=== PATIENT | male | born 1975 | race Caucasian/White ===

== ENCOUNTER 2017-02-19 09:30 | Emergency (ER) | payer OTHER, MEDICAID ==
[~2017-02-19] VITALS: Ht 177.8 cm; Wt 68.9 kg
[2017-02-19 09:32] VITALS: BP 121/73; PULSE 73; RESP 16; TEMP 99.1; O2SAT 100
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
[2017-02-19] MEDS ORDERED: TETANUS/DIPHTHERIA TOXOID ADULT 0.5 ML VIAL IM ONE (10:00)
== END 2017-02-19 10:09 | disposition home or self-care (01) ==
LOC: PHEFT 09:30
DX: R20.2 Paresthesia of skin (principal); S51.851A Open bite of right forearm, initial encounter; F17.200 Nicotine dependence, unspecified, uncomplicated; W50.3XXA Accidental bite by another person, initial encounter; Z23 Encounter for immunization
CPT/HCPCS: 90471; 90714

== ENCOUNTER 2018-07-12 09:38 | Inpatient (IN) ==
[2018-07-12 10:19] LABS: Baso # (Auto) 0.1 th/mm3 (0.0-0.2); Baso % (Auto) 0.4 % (0.0-2.0); Eos # (Auto) 0.3 th/mm3 (0.0-0.4); Hematocrit 39.6 % (39.0-51.0); Hemoglobin 13.1 gm/dL (13.0-17.0); Lymph # (Auto) 4.8 th/mm3 (1.0-4.8); Lymph % (Auto) 14.5 % (9.0-44.0); Mean Corpuscular HGB Conc 33.1 % (32.0-36.0); Mean Corpuscular Hemoglobin 28.1 pg (27.0-34.0); Mean Corpuscular Volume 84.8 fL (80.0-100.0); Mono # (Auto) 2.4 th/mm3 (0.0-0.9); Mono % (Auto) 7.3 % (0.0-8.0); Neut # (Auto) 25.2 th/mm3 (1.8-7.7); Neut % (Auto) 76.8 % (16.0-70.0); Platelet Count 491 th/mm3 (150-450); Red Blood Count 4.67 mil/mm3 (4.50-5.90); Red Cell Distribution Width 12.8 % (11.6-17.2); White Blood Count 32.8 th/mm3 (4.0-11.0)
[2018-07-12 10:46] LABS: Eosinophils 1 % (0-4); Lymphocytes 11 % (9-44); Monocytes 5 % (0-8)
[2018-07-12 10:47] LABS: Platelet Morphology Normal (Normal)
[2018-07-12 10:48] LABS: RBC Morphology Normal (Normal)
[2018-07-12 11:01] LABS: Chloride 100 meq/L (98-107); Sodium 139 meq/L (136-145)
[2018-07-12 11:04] LABS: Albumin 3.4 g/dL (3.4-5.0); Anion Gap 12 meq/L (5-15); Calcium 8.5 mg/dL (8.5-10.1); Carbon Dioxide 27.5 meq/L (21.0-32.0); Glucose,Random 178 mg/dL (74-106)
[2018-07-12 11:05] LABS: Blood Urea Nitrogen 8 mg/dL (7-18)
[2018-07-12 11:08] LABS: Alanine Aminotransferase 17 U/L (12-78); Aspartate Aminotransferase 13 U/L (15-37); Glomerular Filtration Rate Greater Than 89 mL/min (>89)
[2018-07-12 11:09] LABS: Total Protein 8.9 g/dL (6.4-8.2)
[2018-07-12 11:10] LABS: Alkaline Phosphatase 118 U/L (45-117)
--- NOTE | 2018-07-12 11:11 | ED ---
HPI General Chief complaint: Allergic Reaction Stated complaint: Throat closing Time Seen by Provider: 07/12/18 09:48 History of Present Illness HPI narrative: This is a 42-year-old male with no significant past medical history, presents here today with difficulty swallowing and sore throat. Over the last 3 or so days, patient's had progressive discomfort in his throat. He has difficulty swallowing and it is painful to swallow. Patient states he was stung by a wasp on the back of his neck 3 days ago and was not sure if this is related or not. He was initially seen at [facility] here in [place] and they evaluated him and were concerned about an allergic reaction. They gave him 1 mg of IM epinephrine as well as 12 mg of Decadron. They also gave him IV fluids and sent him here by private vehicle for further evaluation. Patient gives history that he had a fever a couple days ago. He is afebrile here. Related Data Home Medications Medication Instructions Recorded Confirmed No Known Home Medications 07/12/18 07/12/18 Allergies Allergy/AdvReac Type Severity Reaction Status Date / Time No Known Allergies Allergy Unverified 07/12/18 09:49 Review of Systems ROS: all other systems reviewed are negative Constitutional Denies chills and Reports fever(s) (A couple days ago) Eyes Reports system reviewed and no additional complaints, except as docu ENT Denies dental pain, Denies facial pain, Denies neck pain, Reports sore throat and Reports throat swelling Cardiovascular Reports system reviewed and no additional complaints, except as docu Respiratory Reports system reviewed and no additional complaints, except [facility] Gastrointestinal Denies abdominal pain, Denies nausea and Denies vomiting Genitourinary Reports system reviewed and no additional complaints, except as [facility] Musculoskeletal Reports system reviewed and no additional complaints, except as [facility] Neurologic Reports system reviewed and no additional complaints, except as docu PMFSH Social History Social History Substance History: No History of Abuse Second Hand Smoke Exposure: Yes Smoking Status: Current some day smoker Tobacco Type: Cigarettes How Often Do You Have a Drink Containing Alcohol: Monthly or less Recent Travel in [facility] within the Last 8 Weeks: No Recent Out of Country Travel within the Last 8 Weeks: No Immunization History Tetanus Immunization: Unsure Hx Influenza Vaccine This Season: No Exam Narrative Exam Narrative: GENERAL: Well-developed well-nourished gentleman in no acute respiratory distress. SKIN: Focused skin assessment warm/dry. HEAD: Atraumatic. Normocephalic. EYES: No scleral icterus. No injection or drainage. ENT: No nasal bleeding or discharge. Patient is able to open his mouth with no trismus. The patient does have a central uvula. No asymmetry in the palates. Very hoarse voice. NECK: Trachea midline. Bilateral submandibular lymphadenopathy. No woody edema noted. CARDIOVASCULAR: Regular rate and rhythm. No murmur appreciated. RESPIRATORY: No accessory muscle use. Clear to auscultation. Breath sounds equal bilaterally. GASTROINTESTINAL: Abdomen soft, non-tender, nondistended. Hepatic and splenic margins not palpable. MUSCULOSKELETAL: No obvious deformities. No clubbing. No cyanosis. No edema. NEUROLOGICAL: Awake and alert. No obvious cranial nerve deficits. Motor grossly within normal limits. Normal speech. Course Initial Documented Vital Signs Temperature 98.8 F 07/12/18 09:47 Pulse Rate 104 H 07/12/18 09:47 Respiratory Rate 20 07/12/18 09:47 Blood Pressure 153/79 H 07/12/18 09:47 Pulse Oximetry 97 07/12/18 09:47 Last Documented Vital Signs Temperature 98.3 F 07/13/18 08:00 Pulse Rate 78 07/13/18 09:00 Respiratory Rate 19 07/13/18 08:00 Blood Pressure 116/55 L 07/13/18 08:00 Pulse Oximetry 95 07/13/18 08:00 Critical Care Time Critical Care Time: Yes Total Critical Care Time: 45 Attestation: Aggregate critical care time was 45 minutes. Time to perform other separately billable procedures was not included in the critical care time. My time did not include minutes spent treating any other patients simultaneously or on activities that did not directly contribute to the patient's treatment. The services I provided to this patient were to treat and/or prevent clinically significant deterioration that could result in: I provided critical care services requiring my management, as noted below: Chart data review, documentation time, medication orders and management, vital sign assessments/reviewing monitor data, ordering and reviewing lab tests, ordering and interpreting/reviewing x-rays and diagnostic studies, care of the patient and discussion of the patient with the admitting physicians. Medical Decision Making MDM Narrative Medical decision making narrative: 42-year-old male presents today with complaints of sore throat difficulty swallowing. Patient was seen at a urgent care and concern was for an allergic reaction. Patient was given 1 mg of epinephrine IM and 12 mg of Decadron. They sent him here for further evaluation. Patient has a white count of 32,000. His CT scan shows a 2.6 cm left peritonsillar abscess. There is airway encroachment however not airway compromise. The patient was discussed with Dr. Wynne, [facility] material analyst , agreed to admit the patient to his service. We transferred the patient to the main hospital for close ICU monitoring. The patient was administered 3 g of Unasyn prior to departure and had IV fluids initiated. Medical Screen Exam Complete: Yes Emergency Medical Condition: Yes Lab Data Result diagrams: 07/13/18 04:44 07/13/18 04:44 Lab Results 07/12/18 07/12/18 07/12/18 Range/Units 09:55 09:55 15:40 CBC w Diff Slide review pending WBC 32.8 H (4.0-11.0) th/mm3 RBC 4.67 (4.50-5.90) mil/mm3 Hgb 13.1 (13.0-17.0) gm/dL Hct 39.6 (39.0-51.0) % MCV 84.8 (80.0-100.0) fL MCH 28.1 (27.0-34.0) pg MCHC 33.1 (32.0-36.0) % RDW 12.8 (11.6-17.2) % Plt Count 491 H (150-450) th/mm3 MPV 8.0 (7.0-11.0) fL Neut % (Auto) 76.8 H (16.0-70.0) % Lymph % (Auto) 14.5 (9.0-44.0) % Noble % (Auto) 7.3 (0.0-8.0) % Eos % (Auto) 1.0 (0.0-4.0) % Baso % (Auto) 0.4 (0.0-2.0) % Neut # (Auto) 25.2 H (1.8-7.7) th/mm3 Lymph # (Auto) 4.8 (1.0-4.8) th/mm3 Noble # (Auto) 2.4 H (0.0-0.9) th/mm3 Eos # (Auto) 0.3 (0.0-0.4) th/mm3 Baso # (Auto) 0.1 (0.0-0.2) th/mm3 WBC Differential Manual diff final Seg Neuts % (Manual) 79 H (16-70) % Band Neuts % (Manual) 4 (0-6) % Lymphocytes % (Manual) 11 (9-44) % Monocytes % (Manual) 5 (0-8) % Eosinophils % (Manual) 1 (0-4) % Abs Neuts (Manual) 27.2 H (1.8-7.7) th/mm3 Differential Comment . Platelet Estimate High H (Normal) Platelet Morphology Normal (Normal) RBC Morphology Normal (Normal) Sodium 139 (136-145) meq/L Potassium 4.0 (3.5-5.1) meq/L Chloride 100 (98-107) meq/L Carbon Dioxide 27.5 (21.0-32.0) meq/L Anion Gap 12 (5-15) meq/L BUN 8 (7-18) mg/dL Creatinine 0.85 (0.60-1.30) mg/dL Estimated GFR Greater than 89 (>89) mL/min POC Glucose (68-110) mg/dl Random Glucose 178 H (74-106) mg/dL Hemoglobin A1c (4.3-6.0) % Lactic Acid 1.0 (0.4-2.0) mmol/L Calcium 8.5 (8.5-10.1) mg/dL Magnesium (1.5-2.5) mg/dL Total Bilirubin 0.5 (0.2-1.0) mg/dL AST 13 L (15-37) U/L ALT 17 (12-78) U/L Alkaline Phosphatase 118 H (45-117) U/L Total Protein 8.9 H (6.4-8.2) g/dL Albumin 3.4 (3.4-5.0) g/dL Nasal Screen MRSA (PCR) (Negative) 07/12/18 07/12/18 07/12/18 Range/Units 15:40 15:40 23:52 CBC w Diff WBC (4.0-11.0) th/mm3 RBC (4.50-5.90) mil/mm3 Hgb (13.0-17.0) gm/dL Hct (39.0-51.0) % MCV (80.0-100.0) fL MCH (27.0-34.0) pg MCHC (32.0-36.0) % RDW (11.6-17.2) % Plt Count (150-450) th/mm3 MPV (7.0-11.0) fL Neut % (Auto) (16.0-70.0) % Lymph % (Auto) (9.0-44.0) % Noble % (Auto) (0.0-8.0) % Eos % (Auto) (0.0-4.0) % Baso % (Auto) (0.0-2.0) % Neut # (Auto) (1.8-7.7) th/mm3 Lymph # (Auto) (1.0-4.8) th/mm3 Noble # (Auto) (0.0-0.9) th/mm3 Eos # (Auto) (0.0-0.4) th/mm3 Baso # (Auto) (0.0-0.2) th/mm3 WBC Differential Seg Neuts % (Manual) (16-70) % Band Neuts % (Manual) (0-6) % Lymphocytes % (Manual) (9-44) % Monocytes % (Manual) (0-8) % Eosinophils % (Manual) (0-4) % Abs Neuts (Manual) (1.8-7.7) th/mm3 Differential Comment Platelet Estimate (Normal) Platelet Morphology (Normal) RBC Morphology (Normal) Sodium (136-145) meq/L Potassium (3.5-5.1) meq/L Chloride (98-107) meq/L Carbon Dioxide (21.0-32.0) meq/L Anion Gap (5-15) meq/L BUN (7-18) mg/dL Creatinine (0.60-1.30) mg/dL Estimated GFR (>89) mL/min POC Glucose 127 H (68-110) mg/dl Random Glucose (74-106) mg/dL Hemoglobin A1c 5.1 (4.3-6.0) % Lactic Acid (0.4-2.0) mmol/L Calcium (8.5-10.1) mg/dL Magnesium (1.5-2.5) mg/dL Total Bilirubin (0.2-1.0) mg/dL AST (15-37) U/L ALT (12-78) U/L Alkaline Phosphatase (45-117) U/L Total Protein (6.4-8.2) g/dL Albumin (3.4-5.0) g/dL Nasal Screen MRSA (PCR) Not detected (Negative) 07/13/18 07/13/18 07/13/18 Range/Units 04:44 04:44 05:22 CBC w Diff WBC 17.1 H (4.0-11.0) th/mm3 RBC 4.50 (4.50-5.90) mil/mm3 Hgb 12.5 L (13.0-17.0) gm/dL Hct 38.0 L (39.0-51.0) % MCV 84.5 (80.0-100.0) fL MCH 27.9 (27.0-34.0) pg MCHC 33.0 (32.0-36.0) % RDW 13.3 (11.6-17.2) % Plt Count 428 (150-450) th/mm3 MPV 7.9 (7.0-11.0) fL Neut % (Auto) 91.2 H (16.0-70.0) % Lymph % (Auto) 6.4 L (9.0-44.0) % Noble % (Auto) 2.4 (0.0-8.0) % Eos % (Auto) 0.0 (0.0-4.0) % Baso % (Auto) 0.0 (0.0-2.0) % Neut # (Auto) 15.6 H (1.8-7.7) th/mm3 Lymph # (Auto) 1.1 (1.0-4.8) th/mm3 Noble # (Auto) 0.4 (0.0-0.9) th/mm3 Eos # (Auto) 0.0 (0.0-0.4) th/mm3 Baso # (Auto) 0.0 (0.0-0.2) th/mm3 WBC Differential . Seg Neuts % (Manual) (16-70) % Band Neuts % (Manual) (0-6) % Lymphocytes % (Manual) (9-44) % Monocytes % (Manual) (0-8) % Eosinophils % (Manual) (0-4) % Abs Neuts (Manual) (1.8-7.7) th/mm3 Differential Comment Auto diff final Platelet Estimate (Normal) Platelet Morphology (Normal) RBC Morphology (Normal) Sodium 137 (136-145) meq/L Potassium 3.9 (3.5-5.1) meq/L Chloride 102 (98-107) meq/L Carbon Dioxide 26.9 (21.0-32.0) meq/L Anion Gap 8 (5-15) meq/L BUN 11 (7-18) mg/dL Creatinine 0.69 (0.60-1.30) mg/dL Estimated GFR Greater than 89 (>89) mL/min POC Glucose 157 H (68-110) mg/dl Random Glucose 129 H (74-106) mg/dL Hemoglobin A1c (4.3-6.0) % Lactic Acid (0.4-2.0) mmol/L Calcium 8.7 (8.5-10.1) mg/dL Magnesium 2.5 (1.5-2.5) mg/dL Total Bilirubin 0.3 (0.2-1.0) mg/dL AST 12 L (15-37) U/L ALT 15 (12-78) U/L Alkaline Phosphatase 98 (45-117) U/L Total Protein 8.8 H (6.4-8.2) g/dL Albumin 3.0 L (3.4-5.0) g/dL Nasal Screen MRSA (PCR) (Negative) Imaging Data Radiologist's impression: Soft Tissue Neck CT 07/12/18 09:48 CONCLUSION: 1. Left tonsillar abscess, 2.6 cm as described above with minimal airway compromise. Discharge Plan Discharge Disposition Patient Disposition: 30 Still Patient Discharge Details Diagnosis: Abscess, peritonsillar, Severe sepsis, Leukocytosis Physicians Team ED Provider: Francisco Cruz Primary Care Provider: Primary Care Alicia Martin Attending Provider: Tyra Estes Other Providers: Mario Chowdhury Discharge Interventions Interventions: ED Discharge Assessment Last Done: 07/12/18 13:59 Vital Signs Last Done: 07/12/18 10:31 Status ED Status: Left Department Discharge Information Discharge Date/Time: 07/12/18 13:55
--- NOTE | 2018-07-12 11:47 | CT ---
EXAM DATE: 07/12/2018 10:07 AM EDT AGE/SEX: 42 years / Male INDICATIONS: Swollen throat for four days. Left sided pain. Evaluate for abscess. CLINICAL DATA: This is the patient's initial encounter. Patient reports that signs and symptoms have been present for 4 - 6 days and indicates a pain score of 8/10. MEDICAL/SURGICAL HISTORY: None. None. RADIATION DOSE: 14.05 CTDI (mGy) COMPARISON: No prior exams available for comparison. TECHNIQUE: Helical acquisition was performed using a multirow detector CT scanner during the adminis tration of 75 ml Omnipaque 350 (iohexol) nonionic water-soluble contrast as a single exam dose. Usi ng automated exposure control and adjustment of the mA and/or kV according to patient size, radiation dose was kept as low as reasonably achievable to obtain optimal diagnostic quality images. DICOM fo rmat image data is available electronically for review and comparison. FINDINGS: There are prominent adenoids and lingual tonsils more so on the right than the left. There is a 2.6 c m fluid collection in the left tonsil consistent with a tonsillar abscess with induration extending i nto the base of the tongue and lingual artery space. Minimal nonspecific adenopathy left neck group t o adenopathy. Low neck is unremarkable In the apex is clear. CONCLUSION: 1. Left tonsillar abscess, 2.6 cm as described above with minimal airway compromise. Electronically signed by: Jose David Cerda MD 07/12/2018 11:46 AM EDT
[2018-07-12] MEDS ORDERED: Ampicillin/Sulbactam Inj 3 GM in Sodium Chloride 0.9% Inj 100 ML IV.SIG ONE (11:55)
[2018-07-12] MEDS ORDERED: KCL 20 mEq/D5W/NaCl 0.45% Inj 1,000 ML IV.CONT SCH (12:00)
[2018-07-12] MEDS ORDERED: Acetaminophen 325 MG Tablet PO PRN (12:28)
[2018-07-12] MEDS ORDERED: Bisacodyl 10 MG Supp RECTAL PRN (12:28)
[2018-07-12] MEDS ORDERED: Morphine Sulfate Inj 2 MG/ML Vial IV.PUSH ONE (12:45)
[2018-07-12] MEDS ORDERED: Vancomycin Inj 1,000 MG in Sodium Chlor 0.9% Inj 250 ML IV.SIG ONE (15:00)
--- NOTE | 2018-07-12 15:04 | P.HPCC ---
History of Present Illness Service: Critical care service Primary Care Physician: No Primary Care Physician Chief Complaint: Sore throat difficulty swallowing History of Present Illness: Patient is a 42-year-old male with no significant past medical history, presented to the [place] emergency department with difficulty swallowing and sore throat. Progressive throat discomfort over the last 3 days, also gives history of being stung by a wasp on the back of his neck 3 days ago. He was seen at an urgent care facility and [facility], he was given 1 mg of IM epinephrine and 12 mg of Decadron for presumed allergic reaction and was send to ER. ER evaluation showed patient had a white count of 33,000, and CT of the neck showed Left tonsillar abscess, 2.6 cm with minimal airway compromise. Because of evidence of airway compromise critical care medicine was requested to admit the patient, with consult to ENT I evaluated the patient after he reached [facility] ICU. Patient appears to be in mild distress due to odynophagia but no difficulty breathing at this time. His left tonsil is significantly swollen and erythematous. He received Unasyn, I will continue Unasyn 3 g every 6 hours and give 1 dose of vancomycin for possible MRSA coinfection. Also placed him on Decadron 6 mg IV every 6 hours. Strep A test was negative. ENT Dr. Chowdhury - Diagnosis (1) Tonsillar abscess (2) Severe sepsis (3) Hyperglycemia (4) Compromised airway Inpatient Certification: I certify that the inpatient services were ordered in accordance with Medicare regulations governing the order. This includes certification that hospital inpatient services are reasonable and necessary and in the case of services not specified as inpatient-only under 42 CFR 419.22(n), that they are appropriately provided as inpatient services in accordance to with the 2-midnight benchmark under 43 CFR 412.3(e) Estimated Total Length of Stay (Days): 5 Plans for Post Hospital Care: Not yet determined Review of Systems All other systems reviewed negative except as stated in HPI PMFSH - History History Provided By: Patient, Family Member - Tobacco History Second Hand Smoke Exposure: Yes Tobacco Use In Past 30 Days: Yes Smoking Status: Current every day smoker Tobacco Type: Cigarettes - Alcohol History How Often Do You Have a Drink Containing Alcohol: 2 to 4 times a month - Substance Use History Substance History: No History of Abuse - Travel History Recent Travel in the [facility] Within the Last 8 Weeks: No Recent Travel Out of the Country Within the Last 8 Weeks: No - Immunization History Tetanus Immunization: Unsure Hx Influenza Vaccine This Season: No Medications and Allergies Active Medications: Active Medications Acetaminophen (Tylenol) 650 mg PO Q6H PRN PRN Reason: PAIN 1-5 AND/OR FEVER >101F Al Hydroxide/Mg Hydroxide (Milk Of Magnesia Liq) 30 ml PO Q12H PRN PRN Reason: Mild Constipation Albuterol (Albuterol Neb (Prn)) 2.5 mg NEB Q2HR NEB PRN PRN Reason: SHORTNESS OF BREATH/WHEEZING Albuterol (Duoneb Neb (Donta)) 1 ampul NEB Q6HR NEB DONTA Bisacodyl (Dulcolax Supp) 10 mg RECTAL DAILY PRN PRN Reason: SEVERE CONSITIPATION Chlorhexidine Gluconate (Chlorhexidine 2% Cloth) 3 pack TOPICAL DAILY@0400 PRN PRN Reason: Extra cloth needed Stop: 07/18/18 03:59 Chlorhexidine Gluconate (Chlorhexidine 2% Cloth) 3 pack TOPICAL DAILY@0400 DONTA Stop: 07/18/18 03:59 Dexamethasone Sodium Phosphate (Decadron Inj) 6 mg IV.PUSH Q6HR DONTA Famotidine (Pepcid Pf Inj) 20 mg IV.PUSH Q12HR DONTA Potassium Chloride/Sodium Chloride (Ns + Kcl 20 Meq Inj) 1,000 mls @ 100 mls/ hr IV.CONT .Q10H [facility] Last Admin: 07/12/18 13:16 Dose: 100 mls/hr Ampicillin Sodium/Sulbactam (Sodium 3 gm/ Sodium Chloride) 100 mls @ 200 mls/ hr IV.SIG Q6H DONTA Vancomycin HCl 1,000 mg/ (Sodium Chloride) 250 mls @ 250 mls/hr IV.SIG ONCE ONE Stop: 07/12/18 15:59 Sodium Chloride (Ns Inj) 1,000 mls @ 0 mls/hr IV.SIG BOLUS DONTA Lactulose (Lactulose Liq) 30 ml PO DAILY PRN PRN Reason: SEVERE CONSITIPATION Morphine Sulfate (Morphine Inj) 2 mg IV.PUSH Q2H PRN PRN Reason: PAIN SCALE 6 TO 10 Senna/Docusate Sodium (Christie-Colace) 1 tab PO BID [facility] Sennosides (Senokot) 17.2 mg PO Q12H PRN PRN Reason: Moderate Constipation Sodium Chloride (Ns Flush) 2 ml IV.FLUSH PRN PRN PRN Reason: FLUSH AFTER USING IV ACCESS Sodium Chloride (Ns Flush) 2 ml IV.FLUSH BID DONTA Allergies Allergy/AdvReac Type Severity Reaction Status Date / Time No Known Allergies Allergy Unverified 07/12/18 09:49 Home Medications Medication Instructions Recorded Confirmed Type No Known Home Medications 07/12/18 07/12/18 History Results - Labs CBC & Chem 7: 07/12/18 09:55 07/12/18 09:55 Labs: Short CBC 07/12/18 Range/Units 09:55 WBC 32.8 H (4.0-11.0) th/mm3 Hgb 13.1 (13.0-17.0) gm/dL Hct 39.6 (39.0-51.0) % Plt Count 491 H (150-450) th/mm3 BMP 07/12/18 09:55 Sodium 139 Potassium 4.0 Chloride 100 Carbon Dioxide 27.5 BUN 8 Creatinine 0.85 Calcium 8.5 Liver Function 07/12/18 Range/Units 09:55 Total Bilirubin 0.5 (0.2-1.0) mg/dL AST 13 L (15-37) U/L ALT 17 (12-78) U/L Alkaline Phosphatase 118 H (45-117) U/L Albumin 3.4 (3.4-5.0) g/dL - Imaging Impressions Soft Tissue Neck CT 07/12/18 09:48 CONCLUSION: 1. Left tonsillar abscess, 2.6 cm as described above with minimal airway compromise. Exam Vital signs: Vital Signs 07/12/18 09:47 07/12/18 09:49 07/12/18 10:31 Temperature 98.8 F Pulse Rate 104 H 104 H 84 Respiratory Rate 20 20 Blood Pressure 153/79 H 144/77 H Pulse Oximetry 97 97 97 07/12/18 13:03 Temperature Pulse Rate 85 Respiratory Rate 18 Blood Pressure 114/69 Pulse Oximetry 96 Intake & Output 07/11/18 07/12/18 07/12/18 18:59 06:59 18:59 Intake Total 110 / 110 Balance 110 / 110 Weight 68.039 kg Intake: IV 110 / 110 D5W/1/2NS + KCL 20 mEq Inj 1, 10 000 ML @ 125 mls/hr IV.CONT . Q8H [facility] Rx#:[id number] Unasyn Inj 3 GM In NS Inj 100 100 / 100 ML @ 200 mls/hr IV.SIG ONCE ONE Rx#:[id number] Narrative: GENERAL: Well-developed well-nourished gentleman in mild respiratory distress. SKIN: warm/dry. HEAD: Atraumatic. Normocephalic. EYES: No scleral icterus. No injection or drainage. ENT: Patient is able to open his mouth. Left tonsil is enlarged swollen and erythematous. Uvula is pushed slightly to the right. No nasal bleeding or discharge. NECK: Trachea midline. Bilateral submandibular lymphadenopathy. No woody edema noted. CARDIOVASCULAR: Regular rate and rhythm. No murmur appreciated. RESPIRATORY: No accessory muscle use. Clear to auscultation. Breath sounds equal bilaterally. GASTROINTESTINAL: Abdomen soft, non-tender, nondistended. Hepatic and splenic margins not palpable. MUSCULOSKELETAL: No obvious deformities. No clubbing. No cyanosis. No edema. NEUROLOGICAL: Awake and alert. No obvious cranial nerve deficits. Motor grossly within normal limits. Septic Shock Reassessment Septic shock perfusion: reassessment completed Caprini VTE Risk Assessment Caprini VTE Risk Assessment: No/Low Risk (score <= 1) Caprini Risk Assessment Model: Point Value = 1 Point Value = 2 Point Value = 3 Point Value = 5 Age 41-60 Minor surgery BMI > 25 kg/m2 Swollen legs Varicose veins or History of unexplained or recurrent spontaneous Oral contraceptives or hormone replacement Sepsis (< 1 month) Serious lung disease, including pneumonia (< 1 month) Abnormal pulmonary function Acute myocardial infarction Congestive heart failure (< 1 month) History of inflammatory bowel disease Medical patient at bed rest Age 61-74 Arthroscopic surgery Major open surgery (> 45 min) Laparoscopic surgery (> 45 min) Malignancy Confined to bed (> 72 hours) Immobilizing plaster cast Central venous access Age >= 75 History of VTE Family history of VTE Factor V Leiden Prothrombin [id number] Lupus anticoagulant Anticardiolipin antibodies Elevated serum homocysteine Heparin-induced thrombocytopenia Other congenital or acquired thrombophilia Stroke (< 1 month) Elective arthroplasty Hip, pelvis, or leg fracture Acute spinal cord injury (< 1 month) Prophylaxis Regimen: Total Risk Factor Score Risk Level Prophylaxis Regimen 0-1 Low Early ambulation 2 Moderate Order ONE of the following: *Sequential Compression Device (SCD) *Heparin 5000 units SQ BID 3-4 Higher Order ONE of the following medications: *Heparin 5000 units SQ TID *Enoxaparin/Lovenox 40 mg SQ daily (WT < 150 kg, CrCl > 30 mL/min) *Enoxaparin/Lovenox 30 mg SQ daily (WT < 150 kg, CrCl > 10-29 mL/min) *Enoxaparin/Lovenox 30 mg SQ BID (WT < 150 kg, CrCl > 30 mL/min) AND/OR *Sequential Compression Device (SCD) 5 or more Highest Order ONE of the following medications: *Heparin 5000 units SQ TID (Preferred with Epidurals) *Enoxaparin/Lovenox 40 mg SQ daily (WT < 150 kg, CrCl > 30 mL/min) *Enoxaparin/Lovenox 30 mg SQ daily (WT < 150 kg, CrCl > 10-29 mL/min) *Enoxaparin/Lovenox 30 mg SQ BID (WT < 150 kg, CrCl > 30 mL/min) AND *Sequential Compression Device (SCD) Assessment and Plan - Problem List (1) Tonsillar abscess Code(s): J36 - Peritonsillar abscess Status: Acute (2) Severe sepsis Code(s): A41.9 - Sepsis, unspecified organism; R65.20 - Severe sepsis without septic shock Status: Acute (3) Hyperglycemia Code(s): R73.9 - Hyperglycemia, unspecified Status: Acute (4) Compromised airway Code(s): J98.8 - Other specified respiratory disorders Status: Acute - Assessment and Plan Plan: NEURO: -Minimize sedation -PRN Tylenol and IV morphine for pain and fever RESP/ENT: Left tonsillar abscess Mild airway compromise -Unasyn 3 g IV every 6 hours, ENT consult -Decadron 6 mg IV every 6 hours -DuoNeb as needed CV: -Normal saline IV fluids 84 ml per hour GI: -N.p.o. until clinically improved, IV famotidine : -Monitor renal function closely. Place Chandler catheter. ID: Severe sepsis Leukocytosis -Antibiotics with Unasyn 3.5 g IV every 6 hours, vancomycin 1 g IV x1 -Follow-up on blood cultures. Rapid strep test negative HEME: -Monitor CBC, coags ENDO: Hyperglycemia -Electrolyte replacement per protocol -Sliding scale insulin PROPH: -Bilateral lower extremity SCDs. Avoid chemical prophylaxis as there may be need of surgical intervention, IV Protonix for GI prophylaxis LINES: -Utilize peripheral IVs, central line if needed Level 3 new admit Code Status: Full Discussed Condition With: Dr. Cruz
[2018-07-12] MEDS ORDERED: Sod Chloride 0.9% Inj 1,000 ML IV.SIG SCH (15:15)
[2018-07-12] MEDS ORDERED: Dextrose 50% in Water 50 ML Vial IV.PUSH PRN (15:51)
[2018-07-12 17:19] LABS: Hemoglobin A1c 5.1 % (4.3-6.0)
[2018-07-12] MEDS: Ampicillin/Sulbactam Inj 3 GM in Sodium Chloride 0.9% Inj 100 ML IV.SIG SCH ×2 (18:43→23:45)
[2018-07-12] MEDS: Insulin NovoLOG Aspart Correctional Sugar Inj SQ SCH ×2 (18:43→23:52)
[2018-07-12] MEDS: Senna/Docusate Sodium 8.6/50 MG Tablet PO SCH (21:17)
[2018-07-12] MEDS: Morphine Sulfate Inj 2 MG/ML Vial IV.PUSH PRN (21:21)
[2018-07-12] MEDS: Famotidine PF Inj 20 MG/2 ML Vial IV.PUSH SCH (21:21)
[2018-07-13] MEDS ORDERED: Chlorhexidine Gluconate 2% 1 Pack (2 Cloths) TOPICAL PRN (04:00)
[2018-07-13] MEDS: Ampicillin/Sulbactam Inj 3 GM in Sodium Chloride 0.9% Inj 100 ML IV.SIG SCH ×3 (05:16→18:11)
[2018-07-13] MEDS: Chlorhexidine Gluconate 2% 1 Pack (2 Cloths) TOPICAL SCH (05:16)
[2018-07-13] MEDS: Insulin NovoLOG Aspart Correctional Sugar Inj SQ SCH ×4 (05:34→23:18)
[2018-07-13 05:57] LABS: Hemoglobin 12.5 gm/dL (13.0-17.0); Lymph # (Auto) 1.1 th/mm3 (1.0-4.8); Lymph % (Auto) 6.4 % (9.0-44.0); Mean Corpuscular Hemoglobin 27.9 pg (27.0-34.0); Mean Corpuscular Volume 84.5 fL (80.0-100.0); Mean Platelet Volume 7.9 fL (7.0-11.0); Mono # (Auto) 0.4 th/mm3 (0.0-0.9); Mono % (Auto) 2.4 % (0.0-8.0); Neut # (Auto) 15.6 th/mm3 (1.8-7.7); Neut % (Auto) 91.2 % (16.0-70.0); Platelet Count 428 th/mm3 (150-450); Red Cell Distribution Width 13.3 % (11.6-17.2); White Blood Count 17.1 th/mm3 (4.0-11.0)
[2018-07-13 06:20] LABS: Anion Gap 8 meq/L (5-15); Aspartate Aminotransferase 12 U/L (15-37); Blood Urea Nitrogen 11 mg/dL (7-18); Calcium 8.7 mg/dL (8.5-10.1); Carbon Dioxide 26.9 meq/L (21.0-32.0); Chloride 102 meq/L (98-107); Glomerular Filtration Rate Greater Than 89 mL/min (>89); Glucose,Random 129 mg/dL (74-106); Magnesium 2.5 mg/dL (1.5-2.5); Potassium 3.9 meq/L (3.5-5.1); Sodium 137 meq/L (136-145)
[2018-07-13 06:26] LABS: Alanine Aminotransferase 15 U/L (12-78); Alkaline Phosphatase 98 U/L (45-117); Total Protein 8.8 g/dL (6.4-8.2)
[2018-07-13] MEDS: [UNRECOGNIZED DRUG - REMARK] OTHER SCH ×3 (07:05→22:13)
--- NOTE | 2018-07-13 08:11 | MB ---
cc: Mario Chowdhury MD DATE: 07/13/2018 REQUESTING PHYSICIAN: Dr. Wynne. REASON FOR ENT CONSULTATION: Peritonsillar abscess. HISTORY OF PRESENT ILLNESS: Dong Del Valle is a 42-year-old man in good health with no significant medical history who presented to the [facility] Emergency Room on the afternoon of 07/12/2018, complaining of a few days of progressive pain in the left side of his throat. This had developed following an insect bite on the back of his neck and he believed he was having an allergic reaction; however, he was found to have a white count of 33,000 and apparent impending abscess development in the left peritonsillar area. CT scan was obtained which showed a 2.6 cm loculating abscess in the left superior tonsillar pillar. He was begun on Unasyn, clindamycin, Rocephin, and Decadron. This morning around 18 hours after initial onset treatment, he reports he is feeling much improved, although he still has a thick feeling in his throat. He is swallowing easily and requests to go on a regular diet. He states he has never had any airway compromise throughout the course of this illness. MEDICATIONS: No prehospital medications. MEDICAL HISTORY: No significant medical history. 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 Smokes cigarettes daily. Occasional alcohol intake. PHYSICAL EXAMINATION: GENERAL: He is alert and cooperative. VITAL SIGNS: Temperature 98.8, pulse 88, respirations 20, blood pressure 152/80. Pulse oximetry is 95% on room air while asleep. HEENT: Head is normocephalic and atraumatic. Normal face. Oral cavity: Teeth in good condition. Tongue and mandible normal. There is asymmetrical hypertrophy of tonsils, left greater than right. Palpation shows no abscess, but it is tender on the left tonsil. Ears: Normal auricles ear canals and tympanic membranes. NECK: No nodes or masses. Larynx and trachea midline. Normal salivary and thyroid glands. ASSESSMENT: Left peritonsillar cellulitis, improving. PLAN: I have discussed these findings with the patient and advised him there is no need for surgery at this point. He may consider having his tonsils removed in a month or so after resolution of symptoms. Recommend he continue inpatient IV antibiotics at least another 24 hours. He can leave the ICU. I have written orders to advance his diet to soft. I will check him again in 12-24 hours. If he is now completely improved, may consider tonsillectomy on the afternoon of 07/14/2018. MD ELIANA Argueta/carlito , 07:26 AM , 07:32 AM
[2018-07-13] MEDS: Famotidine PF Inj 20 MG/2 ML Vial IV.PUSH SCH ×2 (11:04→20:33)
[2018-07-13] MEDS: Senna/Docusate Sodium 8.6/50 MG Tablet PO SCH ×2 (11:04→20:25)
[2018-07-13] MEDS: Clindamycin 900 mg/NS Premix 900 MG/50 ML PIGGYBACK IV.SIG SCH ×2 (11:07→15:42)
[2018-07-13] MEDS: Morphine Sulfate Inj 2 MG/ML Vial IV.PUSH PRN (13:18)
--- NOTE | 2018-07-13 19:35 | P.PNIM ---
Subjective Interval history: Patient complains of some pain with swallowing however has significantly improved since the patient's admission. Physical Exam Vital signs: Vital Signs 07/12/18 20:00 07/12/18 21:00 07/12/18 22:00 Temperature 98.4 F Pulse Rate 86 78 84 Respiratory Rate 14 26 H 28 H Blood Pressure 126/70 142/78 H 118/66 Pulse Oximetry 95 95 96 07/12/18 22:05 07/12/18 23:00 07/13/18 00:00 Temperature 98 F Pulse Rate 82 85 81 Respiratory Rate 14 20 21 Blood Pressure 103/57 L 102/55 L Pulse Oximetry 94 L 94 L 07/13/18 01:00 07/13/18 02:00 07/13/18 03:00 Temperature Pulse Rate 71 72 73 Respiratory Rate 11 L 18 12 Blood Pressure 115/68 120/63 111/69 Pulse Oximetry 94 L 96 94 L 07/13/18 04:00 07/13/18 04:56 07/13/18 05:07 Temperature Pulse Rate 76 72 75 Respiratory Rate 21 20 19 Blood Pressure 119/72 102/67 Pulse Oximetry 95 96 07/13/18 06:00 07/13/18 07:00 07/13/18 08:00 Temperature 98.3 F Pulse Rate 81 85 77 Respiratory Rate 15 11 L 19 Blood Pressure 107/66 108/64 116/55 L Pulse Oximetry 93 L 95 95 07/13/18 09:00 07/13/18 12:17 07/13/18 13:00 Temperature 98.7 F Pulse Rate 78 79 94 H Respiratory Rate 13 22 Blood Pressure 116/68 Pulse Oximetry 96 96 07/13/18 14:00 07/13/18 15:00 07/13/18 15:25 Temperature Pulse Rate 90 88 81 Respiratory Rate 16 25 H 17 Blood Pressure 101/57 L 114/68 Pulse Oximetry 98 97 96 07/13/18 15:26 07/13/18 15:27 07/13/18 15:28 Temperature Pulse Rate 78 84 85 Respiratory Rate 19 21 16 Blood Pressure 115/66 118/58 L 108/60 Pulse Oximetry 97 97 98 07/13/18 16:00 07/13/18 17:00 Temperature 97.6 F Pulse Rate 84 77 Respiratory Rate 24 26 H Blood Pressure 117/72 115/87 Pulse Oximetry 95 97 Intake & Output 07/13/18 07/13/18 07/14/18 06:59 18:59 06:59 Intake Total 1850 / 1850 2700 / 2700 Output Total 1350 / 1350 2400 / 2400 Balance 500 / 500 300 / 300 Weight 70 kg Intake: IV 1550 / 1550 1300 / 1300 NS + KCl 20 mEq Inj 1,000 ML @ 1000 / 1000 1000 / 1000 100 mls/hr IV.CONT .Q10H [facility] Rx #:[id number] Unasyn Inj 3 GM In NS Inj 100 300 / 300 200 / 200 ML @ 200 mls/hr IV.SIG Q6H [facility] Rx#:[id number] Cleocin 900 mg/NS Premix 900 mg 100 / 100 In 50 ml @ 100 mls/hr IV.SIG Q8H [facility] Rx#:[id number] Vancomycin Inj 1,000 MG In NS 250 / 250 Inj 250 ML @ 250 mls/hr IV.SIG ONCE ONE Rx#:[id number] Oral 300 / 300 1400 / 1400 Output: Urine 1350 / 1350 2400 / 2400 Other: Date of Last Bowel Movement 07/13/18 # Bowel Movements 0 1 Narrative: General patient in no acute distress HEENT left tonsillar enlargement. Complains of some pain with swallowing. Cardiovascular S1-S2 audible, RRR, no murmurs rubs or gallops Respiratory clear to auscultation bilaterally Abdomen soft, nontender, nondistended, normal bowel sounds Extremities no edema 2+ distal pulses in bilateral upper and lower extremities Neuro cranial nerves II through XII intact Results - Labs CBC & Chem 7: 07/13/18 04:44 07/13/18 04:44 Laboratory Results - last 24 hr 07/12/18 07/13/18 07/13/18 23:52 04:44 04:44 WBC 17.1 H RBC 4.50 Hgb 12.5 L Hct 38.0 L MCV 84.5 MCH 27.9 MCHC 33.0 RDW 13.3 Plt Count 428 MPV 7.9 Neut % (Auto) 91.2 H Lymph % (Auto) 6.4 L Taney % (Auto) 2.4 Eos % (Auto) 0.0 Baso % (Auto) 0.0 Neut # (Auto) 15.6 H Lymph # (Auto) 1.1 Taney # (Auto) 0.4 Eos # (Auto) 0.0 Baso # (Auto) 0.0 WBC Differential . Differential Comment Auto diff final Sodium 137 Potassium 3.9 Chloride 102 Carbon Dioxide 26.9 Anion Gap 8 BUN 11 Creatinine 0.69 Estimated GFR Greater than 89 POC Glucose 127 H Random Glucose 129 H Calcium 8.7 Magnesium 2.5 Total Bilirubin 0.3 AST 12 L ALT 15 Alkaline Phosphatase 98 Total Protein 8.8 H Albumin 3.0 L 07/13/18 07/13/18 07/13/18 05:22 12:00 15:54 WBC RBC Hgb Hct MCV MCH MCHC RDW Plt Count MPV Neut % (Auto) Lymph % (Auto) Taney % (Auto) Eos % (Auto) Baso % (Auto) Neut # (Auto) Lymph # (Auto) Taney # (Auto) Eos # (Auto) Baso # (Auto) WBC Differential Differential Comment Sodium Potassium Chloride Carbon Dioxide Anion Gap BUN Creatinine Estimated GFR POC Glucose 157 H 169 H 197 H Random Glucose Calcium Magnesium Total Bilirubin AST ALT Alkaline Phosphatase Total Protein Albumin Microbiology 07/12/18 10:00 Throat Group A Streptococcus Screen/Cult - Preliminary No Beta Streptococci isolated at 24 hours 07/12/18 10:05 Blood - Peripheral Aerobic Blood Culture - Preliminary No growth in 1 day 07/12/18 10:05 Blood - Peripheral Anaerobic Blood Culture - Preliminary No growth in 1 day 07/12/18 09:55 Blood - Peripheral Aerobic Blood Culture - Preliminary No growth in 1 day 07/12/18 09:55 Blood - Peripheral Anaerobic Blood Culture - Preliminary No growth in 1 day Assessment and Plan - Plan This patient is a 42-year-old male with no significant past medical history documented. The patient presented to [place] emergency department with difficulty swallowing as well as a sore throat. He stated that the throat discomfort was progressively getting worse over a few days. He did note that he got stung by a wasp the back of his neck a few days ago around the same time his symptoms began. 1. Severe sepsis secondary to left tonsillar abscess and minimal airway compromise. The patient was initially admitted to the intensive care unit due to the concern of airway compromise. Labs showed an elevation in his WBC count to nearly 33,000 now downtrending to 17,000. CT scan of the soft tissue of the neck showed an abscess measuring approximately 2.6 cm with minimal airway compromise. He was started on IV antibiotics and IV steroids. The patient feels like he is doing much better and is now tolerating a soft diet. His pain is also significantly improved. ENT evaluated the patient and recommends continuing IV antibiotics. He is also recommending a tonsillectomy which will possibly be done tomorrow depending on the patient's clinical course. For now we will continue the patient on current treatment and follow up with recommendations from ENT. Follow-up a.m. CBC and basic metabolic panel. Strep test was negative.
[2018-07-14] MEDS: Clindamycin 900 mg/NS Premix 900 MG/50 ML PIGGYBACK IV.SIG SCH ×2 (00:37→08:54)
[2018-07-14] MEDS: Ampicillin/Sulbactam Inj 3 GM in Sodium Chloride 0.9% Inj 100 ML IV.SIG SCH ×3 (00:37→11:32)
[2018-07-14] MEDS: Chlorhexidine Gluconate 2% 1 Pack (2 Cloths) TOPICAL SCH (03:00)
[2018-07-14] MEDS: Insulin NovoLOG Aspart Correctional Sugar Inj SQ SCH ×2 (05:44→11:36)
[2018-07-14] MEDS: [UNRECOGNIZED DRUG - REMARK] OTHER SCH (05:44)
[2018-07-14 08:09] LABS: Baso % (Auto) 0.1 % (0.0-2.0); Hematocrit 34.2 % (39.0-51.0); Hemoglobin 11.1 gm/dL (13.0-17.0); Lymph # (Auto) 1.9 th/mm3 (1.0-4.8); Lymph % (Auto) 13.3 % (9.0-44.0); Mean Corpuscular HGB Conc 32.5 % (32.0-36.0); Mean Corpuscular Hemoglobin 27.4 pg (27.0-34.0); Mean Corpuscular Volume 84.1 fL (80.0-100.0); Mono % (Auto) 6.7 % (0.0-8.0); Neut # (Auto) 11.5 th/mm3 (1.8-7.7); Neut % (Auto) 79.9 % (16.0-70.0); Platelet Count 416 th/mm3 (150-450); Red Blood Count 4.07 mil/mm3 (4.50-5.90); Red Cell Distribution Width 13.1 % (11.6-17.2); White Blood Count 14.4 th/mm3 (4.0-11.0)
[2018-07-14 08:40] LABS: Anion Gap 6 meq/L (5-15); Blood Urea Nitrogen 13 mg/dL (7-18); Carbon Dioxide 29.1 meq/L (21.0-32.0); Chloride 108 meq/L (98-107); Glomerular Filtration Rate Greater Than 89 mL/min (>89); Glucose,Random 97 mg/dL (74-106); Magnesium 2.4 mg/dL (1.5-2.5); Potassium 3.7 meq/L (3.5-5.1); Sodium 143 meq/L (136-145)
[2018-07-14] MEDS: Famotidine PF Inj 20 MG/2 ML Vial IV.PUSH SCH (08:55)
[2018-07-14] MEDS: Senna/Docusate Sodium 8.6/50 MG Tablet PO SCH (08:55)
--- NOTE | 2018-07-14 12:52 | P.PNIM ---
Subjective Interval history: Patient states that he feels better than yesterday. Slight pain on palpation the left submandibular region. He does not have any other complaints. Physical Exam Vital signs: Vital Signs 07/13/18 13:00 07/13/18 14:00 07/13/18 15:00 Temperature Pulse Rate 94 H 90 88 Respiratory Rate 22 16 25 H Blood Pressure 116/68 101/57 L Pulse Oximetry 96 98 97 07/13/18 15:25 07/13/18 15:26 07/13/18 15:27 Temperature Pulse Rate 81 78 84 Respiratory Rate 17 19 21 Blood Pressure 114/68 115/66 118/58 L Pulse Oximetry 96 97 97 07/13/18 15:28 07/13/18 16:00 07/13/18 17:00 Temperature 97.6 F Pulse Rate 85 84 77 Respiratory Rate 16 24 26 H Blood Pressure 108/60 117/72 115/87 Pulse Oximetry 98 95 97 07/13/18 18:00 07/13/18 19:00 07/13/18 19:01 Temperature Pulse Rate 89 85 91 H Respiratory Rate 20 18 25 H Blood Pressure 116/72 128/68 Pulse Oximetry 96 97 97 07/13/18 20:00 07/13/18 20:27 07/13/18 20:30 Temperature 98 F Pulse Rate 76 77 Respiratory Rate 21 16 Blood Pressure 116/71 Pulse Oximetry 98 97 07/14/18 00:00 07/14/18 04:00 07/14/18 08:00 Temperature 97.8 F 97.2 F L 97.8 F Pulse Rate 66 62 67 Respiratory Rate 16 16 16 Blood Pressure 113/70 111/73 135/68 Pulse Oximetry 96 97 95 Intake & Output 07/13/18 07/14/18 07/14/18 18:59 06:59 18:59 Intake Total 2700 / 2700 1250 / 1250 150 / 150 Output Total 2400 / 2400 Balance 300 / 300 1250 / 1250 150 / 150 Weight 73.4 kg Intake: IV 1300 / 1300 1250 / 1250 150 / 150 NS + KCl 20 mEq Inj 1,000 ML @ 1000 / 1000 1000 / 1000 100 mls/hr IV.CONT .Q10H [facility] Rx #:[id number] Unasyn Inj 3 GM In NS Inj 100 200 / 200 200 / 200 100 / 100 ML @ 200 mls/hr IV.SIG Q6H [facility] Rx#:[id number] Cleocin 900 mg/NS Premix 900 mg 100 / 100 50 / 50 50 / 50 In 50 ml @ 100 mls/hr IV.SIG Q8H [facility] Rx#:[id number] Oral 1400 / 1400 Output: Urine 2400 / 2400 Other: # Voids 2 Date of Last Bowel Movement 07/13/18 # Bowel Movements 1 Narrative: General patient in no acute distress HEENT left tonsillar enlargement. Complains of some pain with swallowing, improved since yesterday. Cardiovascular S1-S2 audible, RRR, no murmurs rubs or gallops Respiratory clear to auscultation bilaterally Abdomen soft, nontender, nondistended, normal bowel sounds Extremities no edema 2+ distal pulses in bilateral upper and lower extremities Neuro cranial nerves II through XII intact Results - Labs CBC & Chem 7: 07/14/18 06:25 07/14/18 06:25 Laboratory Results - last 24 hr 07/13/18 07/13/18 07/14/18 15:54 23:10 05:43 WBC RBC Hgb Hct MCV MCH MCHC RDW Plt Count MPV Neut % (Auto) Lymph % (Auto) [place] % (Auto) Eos % (Auto) Baso % (Auto) Neut # (Auto) Lymph # (Auto) [place] # (Auto) Eos # (Auto) Baso # (Auto) WBC Differential Differential Comment PT INR Sodium Potassium Chloride Carbon Dioxide Anion Gap BUN Creatinine Estimated GFR POC Glucose 197 H 177 H 135 H Random Glucose Calcium Magnesium 07/14/18 07/14/18 07/14/18 06:25 06:25 06:25 WBC 14.4 H RBC 4.07 L Hgb 11.1 L Hct 34.2 L MCV 84.1 MCH 27.4 MCHC 32.5 RDW 13.1 Plt Count 416 MPV 8.0 Neut % (Auto) 79.9 H Lymph % (Auto) 13.3 [place] % (Auto) 6.7 Eos % (Auto) 0.0 Baso % (Auto) 0.1 Neut # (Auto) 11.5 H Lymph # (Auto) 1.9 [place] # (Auto) 1.0 H Eos # (Auto) 0.0 Baso # (Auto) 0.0 WBC Differential . Differential Comment Auto diff final PT 10.0 INR 1.0 Sodium 143 Potassium 3.7 Chloride 108 H Carbon Dioxide 29.1 Anion Gap 6 BUN 13 Creatinine 0.79 Estimated GFR Greater than 89 POC Glucose Random Glucose 97 Calcium 8.0 L Magnesium 2.4 07/14/18 11:36 WBC RBC Hgb Hct MCV MCH MCHC RDW Plt Count MPV Neut % (Auto) Lymph % (Auto) [place] % (Auto) Eos % (Auto) Baso % (Auto) Neut # (Auto) Lymph # (Auto) [place] # (Auto) Eos # (Auto) Baso # (Auto) WBC Differential Differential Comment PT INR Sodium Potassium Chloride Carbon Dioxide Anion Gap BUN Creatinine Estimated GFR POC Glucose 108 Random Glucose Calcium Magnesium Microbiology 07/12/18 10:05 Blood - Peripheral Aerobic Blood Culture - Preliminary No growth in 2 days 07/12/18 10:05 Blood - Peripheral Anaerobic Blood Culture - Preliminary No growth in 2 days 07/12/18 09:55 Blood - Peripheral Aerobic Blood Culture - Preliminary No growth in 2 days 07/12/18 09:55 Blood - Peripheral Anaerobic Blood Culture - Preliminary No growth in 2 days 07/12/18 10:00 Throat Group A Streptococcus Screen/Cult - Preliminary No Beta Streptococci isolated at 24 hours Assessment and Plan - Plan This patient is a 42-year-old male with no significant past medical history documented. The patient presented to [facility] emergency department with difficulty swallowing as well as a sore throat. He stated that the throat discomfort was progressively getting worse over a few days. He did note that he got stung by a wasp the back of his neck a few days ago around the same time his symptoms began. 1. Severe sepsis secondary to left tonsillar abscess and minimal airway compromise. The patient was initially admitted to the intensive care unit due to the concern of airway compromise. Labs showed an elevation in his WBC count to nearly 33,000 now continues to downtrend and is currently at 14,000. CT scan of the soft tissue of the neck showed an abscess measuring approximately 2.6 cm with minimal airway compromise. He was started on IV antibiotics and IV steroids. The patient feels like he is doing much better and is now tolerating a soft diet as of last night. His pain is also significantly improved. ENT evaluated the patient and recommends continuing IV antibiotics. He is also recommending a tonsillectomy which will possibly be done today as the patient's symptoms have improved. I will follow-up with ENT today to see if the surgical procedure can take place today. Patient is currently n.p.o. for possible tonsillectomy. Patient is ambulatory no need for pharmacotherapy for DVT prophylaxis.
[2018-07-14 13:21] VITALS: BP 123/78; PULSE 61; RESP 17; TEMP 97.9; O2SAT 97
--- NOTE | 2018-07-14 13:53 | P.DS ---
Date of admission: 07/12/18 12:29 Primary care physician: No Primary Care Physician Brief History from admission: This is a 42-year-old male who presented with complaints of difficulty swallowing as well as some shortness of breath. He was found to have a left tonsillar abscess and was admitted for treatment of the abscess. DS: Diagnosis - Discharge Diagnosis (1) Severe sepsis Status: Acute DS: Medications - Discharge Medications Prescriptions: clindamycin HCl [Cleocin HCl] 300 mg PO Q6HR #64 cap DS: Summary Hospital Course: This patient is a 42-year-old male with no significant past medical history documented. The patient presented to [facility] emergency department with difficulty swallowing as well as a sore throat. He stated that the throat discomfort was progressively getting worse over a few days. He did note that he got stung by a wasp the back of his neck a few days ago around the same time his symptoms began. 1. Severe sepsis secondary to left tonsillar abscess and minimal airway compromise. The patient was initially admitted to the intensive care unit due to the concern of airway compromise. Labs showed an elevation in his WBC count and continued to downtrend significantly after the initiation of IV antibiotics. CT scan of the soft tissue of the neck showed an abscess measuring approximately 2.6 cm with minimal airway compromise. He was started on IV antibiotics and IV steroids. The patient feels like he is doing much better and is now tolerating a soft diet as of last night. His pain is also significantly improved. ENT evaluated the patient and recommends continuing the patient on p.o. antibiotics on discharge. He is also recommending a tonsillectomy which can be done in the outpatient setting in the next 2-4 weeks. The patient should follow-up with his primary care physician in the next 1-2 weeks and schedule an appointment with ENT for tonsillectomy. He will be discharged today on p.o. clindamycin for 8 more days. The patient was advised to seek immediate medical attention if the swelling in his neck gets worse or if he starts to have difficulty breathing or swallowing. The patient is currently tolerating a p.o. diet, no complaints of shortness of breath, no dysphagia. He will be discharged home today. Patient is ambulatory no need for pharmacotherapy for DVT prophylaxis. - Time Spent with Patient Total time spent providing and/or coordinating discharge services: Greater than 30 minutes - Quality: VTE Deep Vein Thrombosis/Pulmonary Embolism Present on Admission: No Exam Vital signs: Vital Signs 07/13/18 14:00 07/13/18 15:00 07/13/18 15:25 Temperature Pulse Rate 90 88 81 Respiratory Rate 16 25 H 17 Blood Pressure 101/57 L 114/68 Pulse Oximetry 98 97 96 07/13/18 15:26 07/13/18 15:27 07/13/18 15:28 Temperature Pulse Rate 78 84 85 Respiratory Rate 19 21 16 Blood Pressure 115/66 118/58 L 108/60 Pulse Oximetry 97 97 98 07/13/18 16:00 07/13/18 17:00 07/13/18 18:00 Temperature 97.6 F Pulse Rate 84 77 89 Respiratory Rate 24 26 H 20 Blood Pressure 117/72 115/87 116/72 Pulse Oximetry 95 97 96 07/13/18 19:00 07/13/18 19:01 07/13/18 20:00 Temperature 98 F Pulse Rate 85 91 H 76 Respiratory Rate 18 25 H 21 Blood Pressure 128/68 116/71 Pulse Oximetry 97 97 98 07/13/18 20:27 07/13/18 20:30 07/14/18 00:00 Temperature 97.8 F Pulse Rate 77 66 Respiratory Rate 16 16 Blood Pressure 113/70 Pulse Oximetry 97 96 07/14/18 04:00 07/14/18 08:00 07/14/18 12:00 Temperature 97.2 F L 97.8 F 97.9 F Pulse Rate 62 67 61 Respiratory Rate 16 16 17 Blood Pressure 111/73 135/68 123/78 Pulse Oximetry 97 95 97 Intake & Output 07/13/18 07/14/18 07/14/18 18:59 06:59 18:59 Intake Total 2700 / 2700 1250 / 1250 150 / 150 Output Total 2400 / 2400 Balance 300 / 300 1250 / 1250 150 / 150 Weight 73.4 kg Intake: IV 1300 / 1300 1250 / 1250 150 / 150 NS + KCl 20 mEq Inj 1,000 ML @ 1000 / 1000 1000 / 1000 100 mls/hr IV.CONT .Q10H [facility] Rx #:[id number] Unasyn Inj 3 GM In NS Inj 100 200 / 200 200 / 200 100 / 100 ML @ 200 mls/hr IV.SIG Q6H [facility] Rx#:[id number] Cleocin 900 mg/NS Premix 900 mg 100 / 100 50 / 50 50 / 50 In 50 ml @ 100 mls/hr IV.SIG Q8H [facility] Rx#:[id number] Oral 1400 / 1400 Output: Urine 2400 / 2400 Other: # Voids 2 Date of Last Bowel Movement 07/13/18 # Bowel Movements 1 Narrative: General patient in no acute distress HEENT left tonsillar enlargement. No complaints of pain when swallowing. The patient tolerated his lunch without any difficulties. Cardiovascular S1-S2 audible, RRR, no murmurs rubs or gallops Respiratory clear to auscultation bilaterally Abdomen soft, nontender, nondistended, normal bowel sounds Extremities no edema 2+ distal pulses in bilateral upper and lower extremities Neuro cranial nerves II through XII intact Results Procedures completed during hospitalization: None Labs on day of discharge: Labs from last 24 hours 07/14/18 07/14/18 07/14/18 11:36 06:25 06:25 WBC RBC Hgb Hct MCV MCH MCHC RDW Plt Count MPV Neut % (Auto) Lymph % (Auto) [place] % (Auto) Eos % (Auto) Baso % (Auto) Neut # (Auto) Lymph # (Auto) [place] # (Auto) Eos # (Auto) Baso # (Auto) WBC Differential Differential Comment PT 10.0 INR 1.0 Sodium 143 Potassium 3.7 Chloride 108 H Carbon Dioxide 29.1 Anion Gap 6 BUN 13 Creatinine 0.79 Estimated GFR Greater than 89 POC Glucose 108 Random Glucose 97 Calcium 8.0 L Magnesium 2.4 07/14/18 07/14/18 07/13/18 06:25 05:43 23:10 WBC 14.4 H RBC 4.07 L Hgb 11.1 L Hct 34.2 L MCV 84.1 MCH 27.4 MCHC 32.5 RDW 13.1 Plt Count 416 MPV 8.0 Neut % (Auto) 79.9 H Lymph % (Auto) 13.3 [place] % (Auto) 6.7 Eos % (Auto) 0.0 Baso % (Auto) 0.1 Neut # (Auto) 11.5 H Lymph # (Auto) 1.9 [place] # (Auto) 1.0 H Eos # (Auto) 0.0 Baso # (Auto) 0.0 WBC Differential . Differential Comment Auto diff final PT INR Sodium Potassium Chloride Carbon Dioxide Anion Gap BUN Creatinine Estimated GFR POC Glucose 135 H 177 H Random Glucose Calcium Magnesium 07/13/18 15:54 WBC RBC Hgb Hct MCV MCH MCHC RDW Plt Count MPV Neut % (Auto) Lymph % (Auto) [place] % (Auto) Eos % (Auto) Baso % (Auto) Neut # (Auto) Lymph # (Auto) [place] # (Auto) Eos # (Auto) Baso # (Auto) WBC Differential Differential Comment PT INR Sodium Potassium Chloride Carbon Dioxide Anion Gap BUN Creatinine Estimated GFR POC Glucose 197 H Random Glucose Calcium Magnesium Preliminary micro results at discharge 07/12/18 10:05 Aerobic Blood Culture - Preliminary Blood - Peripheral No growth in 2 days Anaerobic Blood Culture - Preliminary No growth in 2 days 07/12/18 09:55 Aerobic Blood Culture - Preliminary Blood - Peripheral No growth in 2 days Anaerobic Blood Culture - Preliminary No growth in 2 days - Impressions ITS Impressions Soft Tissue Neck CT 07/12/18 09:48 CONCLUSION: 1. Left tonsillar abscess, 2.6 cm as described above with minimal airway compromise. Discharge Plan - Discharge Disposition Patient Disposition: Discharge Home - Discharge Condition Condition: Good - Discharge Order Discharge Orders: Discharge Order (Routine); Ordered 07/14/18 Ordered By: Tyra Estes - Physicians Team Primary Care Provider: Primary Care Alicia Martin Attending Provider: Tyra Estes Other Providers: Mario Chowdhury MD
== END 2018-07-14 14:19 | disposition home or self-care (01) ==
LOC: PHEFT 09:38 → PHEDA 12:29 → HIMC 14:23 → N07 07-13 23:37
PROVIDERS: ADMIT Hospitalist; ATTEND Hospitalist

== ENCOUNTER 2018-07-23 08:08 | Inpatient (IN) ==
[2018-07-23] MEDS ORDERED: Piperacil/Tazo 3.375 GM Premix 50 ML IV.SIG ONE (08:38)
[2018-07-23] MEDS ORDERED: MethylPREDNISolone Sod Succinate Inj 125 MG/2 ML Vial IV.PUSH ONE (08:41)
[2018-07-23] MEDS ORDERED: Sod Chloride 0.9% Inj 1,000 ML IV.SIG SCH ×2 (08:45→12:00)
--- NOTE | 2018-07-23 08:45 | ED ---
HPI General Chief complaint: Respiratory Symptoms Stated complaint: throat closing/seen last week Time Seen by Provider: 07/23/18 08:29 Source: patient Mode of arrival: ambulatory Limitations: no limitations History of Present Illness HPI narrative: 42-year-old male patient with history of smoking, was admitted to the hospital 10 days ago for a peritonsillar abscess, is currently on clindamycin for a week now, to be followed up with ENT next week for possible tonsillectomy, returns to the ER today because he states that over the last week his throat has been getting worse again and he is having difficulty swallowing, is able to swallow liquids but very difficult and painful. He feels like his throat is closing up. He also complains of some mild shortness of breath. He denies any vomiting, chest pains, or other symptoms. Related Data Previous Rx's Medication Instructions Recorded clindamycin HCl [Cleocin HCl] 300 mg PO Q6HR #64 cap 07/14/18 Allergies Allergy/AdvReac Type Severity Reaction Status Date / Time No Known Allergies Allergy Verified 07/23/18 08:19 Review of Systems ROS: all other systems reviewed are negative [facility] Medical History Medical History Asthma (Acute) Surgical History Surgical History Hx of repair of left rotator cuff (Acute) Social History Social History Substance History: No History of Abuse Second Hand Smoke Exposure: No Smoking Status: Current every day smoker Tobacco Type: Cigarettes How Often Do You Have a Drink Containing Alcohol: Never Recent Travel in [facility] within the Last 8 Weeks: No Recent Out of Country Travel within the Last 8 Weeks: No Immunization History Tetanus Immunization: <5 Years Exam Narrative Exam Narrative: GENERAL: Well-developed middle-age male patient currently in moderate distress. Awake and oriented x3. SKIN: Focused skin assessment warm/dry. HEAD: Atraumatic. Normocephalic. EYES: Pupils equal and round. No scleral icterus. No injection or drainage. ENT: Mucosa pink and moist. There is notable significant edema in the soft palate which is mostly in the left, with pushing of the uvula away from the left side. Airway patent. Nasal turbinates appear normal without nasal blood, purulent drainage or septal hematoma. NECK: Trachea midline. No JVD. Supple. No masses or fluctuance. CARDIOVASCULAR: Regular rate and rhythm. No murmur appreciated. RESPIRATORY: No accessory muscle use. Clear to auscultation. Breath sounds equal bilaterally. GASTROINTESTINAL: Abdomen soft, non-tender, nondistended. Hepatic and splenic margins not palpable. MUSCULOSKELETAL: No obvious deformities. No clubbing. No cyanosis. No edema. NEUROLOGICAL: Awake and alert. No obvious cranial nerve deficits. Motor grossly within normal limits. Normal speech. PSYCHIATRIC: Appropriate mood and affect; insight and judgment normal. Course Initial Documented Vital Signs Temperature 100 F H 07/23/18 08:16 Pulse Rate 88 07/23/18 08:16 Respiratory Rate 22 07/23/18 08:16 Blood Pressure 149/85 H 07/23/18 08:16 Pulse Oximetry 98 07/23/18 08:16 Last Documented Vital Signs Temperature 100 F H 07/23/18 08:16 Pulse Rate 76 07/23/18 11:45 Respiratory Rate 20 07/23/18 08:57 Blood Pressure 119/72 07/23/18 11:44 Pulse Oximetry 95 07/23/18 11:45 Medical Decision Making MDM Narrative Medical decision making narrative: Considering recent history of tonsillar abscess, there is a high index of suspicion that this is another abscess that is redeveloping. Sepsis workup was initiated, IV fluids and IV antibiotics initiated after cultures were drawn. CAT scan is showing a peritonsillar abscess seen again. Lab work shows significant leukocytosis. Case was discussed with Dr. Chowdhury initially but he states he is out of town, and was then discussed with Dr. Dominguez who would like the patient to be admitted to the ICU at the [facility] due to possibility of airway compromise. Patient is able to control his airway currently in the ER, is not having drooling at this time. Case was then discussed with Dr. Storm Wolfe for ICU admission. According to Dr. Dominguez, he would like the patient to get 10 of Decadron q. 8 and 2 L IV fluids, continue antibiotic IV, currently being given Zosyn. Aggregate critical care time was 30 minutes. Time to perform other separately billable procedures was not included in the critical care time. My time did not include minutes spent treating any other patients simultaneously or on activities that did not directly contribute to the patient's treatment. The services I provided to this patient were to treat and/or prevent clinically significant deterioration that could result in: Worsening respiratory distress, airway compromise, I provided critical care services requiring my management, as noted below: Chart data review, documentation time, medication orders and management, vital sign assessments/reviewing monitor data, ordering and reviewing lab tests, ordering and interpreting/reviewing x-rays and diagnostic studies, care of the patient and discussion of the patient with the admitting physicians. Medical Screen Exam Complete: Yes Emergency Medical Condition: Yes Differential Diagnosis Differential Diagnosis: Peritonsillar cellulitis versus peritonsillar abscess versus allergic reaction Lab Data Lab results reviewed: Yes I reviewed the patient's lab results. Result diagrams: 07/23/18 08:54 07/23/18 08:54 Lab Results 07/23/18 07/23/18 07/23/18 Range/Units 08:54 08:54 08:54 CBC w Diff Slide review pending WBC 17.5 H (4.0-11.0) th/mm3 RBC 4.65 (4.50-5.90) mil/mm3 Hgb 12.9 L (13.0-17.0) gm/dL Hct 39.0 (39.0-51.0) % MCV 83.8 (80.0-100.0) fL MCH 27.8 (27.0-34.0) pg MCHC 33.1 (32.0-36.0) % RDW 13.2 (11.6-17.2) % Plt Count 418 (150-450) th/mm3 MPV 8.1 (7.0-11.0) fL Neut % (Auto) 81.6 H (16.0-70.0) % Lymph % (Auto) 8.5 L (9.0-44.0) % [place] % (Auto) 7.0 (0.0-8.0) % Eos % (Auto) 0.8 (0.0-4.0) % Baso % (Auto) 2.1 H (0.0-2.0) % Neut # (Auto) 14.3 H (1.8-7.7) th/mm3 Lymph # (Auto) 1.5 (1.0-4.8) th/mm3 [place] # (Auto) 1.2 H (0.0-0.9) th/mm3 Eos # (Auto) 0.1 (0.0-0.4) th/mm3 Baso # (Auto) 0.4 H (0.0-0.2) th/mm3 WBC Differential . Diff Scan Auto diff confirmed Differential Comment . Sodium 138 (136-145) meq/L Potassium 3.8 (3.5-5.1) meq/L Chloride 104 (98-107) meq/L Carbon Dioxide 26.5 (21.0-32.0) meq/L Anion Gap 8 (5-15) meq/L BUN 12 (7-18) mg/dL Creatinine 0.80 (0.60-1.30) mg/dL Estimated GFR Greater than 89 (>89) mL/min Random Glucose 97 (74-106) mg/dL Lactic Acid 1.2 (0.4-2.0) mmol/L Calcium 7.8 L (8.5-10.1) mg/dL Total Bilirubin 0.3 (0.2-1.0) mg/dL AST 16 (15-37) U/L ALT 15 (12-78) U/L Alkaline Phosphatase 87 (45-117) U/L Total Protein 7.3 (6.4-8.2) g/dL Albumin 3.1 L (3.4-5.0) g/dL Imaging Data Attestation: I personally reviewed and interpreted this imaging study as follows : Radiologist's impression: Soft Tissue Neck CT 07/23/18 08:45 CONCLUSION: Persistent left peritonsillar abscess Discharge Plan Discharge Disposition Patient Disposition: 30 Still Patient Discharge Condition Condition: Fair Discharge Details Anticipated Discharge Date: 07/23/18 Diagnosis: Abscess, peritonsillar Physicians Team ED Provider: Sadie Car Primary Care Provider: Primary Care Physici,Alicia Rxs /Orders / Referrals /Forms Prescriptions: No Action clindamycin HCl [Cleocin HCl] 150 mg Capsule 300 mg PO Q6HR Qty: 64 RF: 0 Discharge Interventions Interventions: Vital Signs Last Done: 07/23/18 11:45 Status ED Status: With Doctor
[2018-07-23 09:09] LABS: Chloride 104 meq/L (98-107); Potassium 3.8 meq/L (3.5-5.1); Sodium 138 meq/L (136-145)
[2018-07-23 09:13] LABS: Albumin 3.1 g/dL (3.4-5.0); Anion Gap 8 meq/L (5-15); Blood Urea Nitrogen 12 mg/dL (7-18); Calcium 7.8 mg/dL (8.5-10.1); Carbon Dioxide 26.5 meq/L (21.0-32.0); Glucose,Random 97 mg/dL (74-106)
[2018-07-23 09:15] LABS: Baso # (Auto) 0.4 th/mm3 (0.0-0.2); Baso % (Auto) 2.1 % (0.0-2.0); Eos # (Auto) 0.1 th/mm3 (0.0-0.4); Eos % (Auto) 0.8 % (0.0-4.0); Hemoglobin 12.9 gm/dL (13.0-17.0); Lymph # (Auto) 1.5 th/mm3 (1.0-4.8); Lymph % (Auto) 8.5 % (9.0-44.0); Mean Corpuscular HGB Conc 33.1 % (32.0-36.0); Mean Corpuscular Hemoglobin 27.8 pg (27.0-34.0); Mean Corpuscular Volume 83.8 fL (80.0-100.0); Mean Platelet Volume 8.1 fL (7.0-11.0); Mono # (Auto) 1.2 th/mm3 (0.0-0.9); Neut # (Auto) 14.3 th/mm3 (1.8-7.7); Neut % (Auto) 81.6 % (16.0-70.0); Platelet Count 418 th/mm3 (150-450); Red Blood Count 4.65 mil/mm3 (4.50-5.90); Red Cell Distribution Width 13.2 % (11.6-17.2); White Blood Count 17.5 th/mm3 (4.0-11.0)
[2018-07-23 09:16] LABS: Alanine Aminotransferase 15 U/L (12-78); Aspartate Aminotransferase 16 U/L (15-37); Glomerular Filtration Rate Greater Than 89 mL/min (>89)
[2018-07-23 09:18] LABS: Total Protein 7.3 g/dL (6.4-8.2)
[2018-07-23 09:19] LABS: Alkaline Phosphatase 87 U/L (45-117)
--- NOTE | 2018-07-23 10:08 | CT ---
EXAM DATE: 07/23/2018 8:49 AM EDT AGE/SEX: 42 years / Male INDICATIONS: Difficulty swallowing. Sore throat. Evaluate abscess. CLINICAL DATA: This is the patient's initial encounter. Patient reports that signs and symptoms have been present for 1 week and indicates a pain score of 10/10. MEDICAL/SURGICAL HISTORY: Asthma. Peritonsillar abscess. None. RADIATION DOSE: 15.31 CTDI (mGy) COMPARISON: [facility], CT SOFT TISSUE NECK W CONTRAST, 07/12/2018. . TECHNIQUE: Helical acquisition was performed using a multirow detector CT scanner during the adminis tration of 65 ml Omnipaque 350 (iohexol) nonionic water-soluble contrast as a single exam dose. Usi ng automated exposure control and adjustment of the mA and/or kV according to patient size, radiation dose was kept as low as reasonably achievable to obtain optimal diagnostic quality images. DICOM fo rmat image data is available electronically for review and comparison. FINDINGS: Left peritonsillar abscess is again noted, not significant changed from prior. The tonsillar tissues prominently enlarged on the contralateral right side as well however without significant low density collection associated. There is stable mild airway compromise. Elsewhere, the visualized brain and orbital facial structures are stable and benign. The salivary gla nds are symmetric and unremarkable. There are moderately enlarged presumed reactive lymph nodes in th e neck, left worse than right. Supraclavicular regions, visualized upper mediastinum and lung apices are clear. Bony elements are stable and benign. CONCLUSION: Persistent left peritonsillar abscess Electronically signed by: Ricci Puentes MD 07/23/2018 10:07 AM EDT
[2018-07-23] MEDS ORDERED: Potassium Chloride 25 MEQ Effervescent Tablet PO PRN (11:56)
[2018-07-23] MEDS ORDERED: Magnesium Oxide 400 MG Tablet PO PRN (11:56)
[2018-07-23] MEDS ORDERED: Magnesium Sulfate Inj 4 GM in Sodium Chlor 0.9% Inj 92 ML IV.SIG PRN (11:56)
[2018-07-23] MEDS ORDERED: Potassium Phosphate 500 MG Soluble Tablet PO PRN ×2 (11:56)
[2018-07-23] MEDS ORDERED: Potassium Chlor 20 mEq Premix 20 MEQ/100 ML PIGGYBACK IV.SIG PRN ×2 (11:56)
[2018-07-23] MEDS ORDERED: Magnesium Sulfate Inj 2 GM in Sodium Chlor 0.9% Inj 96 ML IV.SIG PRN (11:56)
[2018-07-23] MEDS ORDERED: Potassium Phosphate Inj 30 MMOL in Sodium Chlor 0.9% Inj 250 ML IV.SIG PRN (11:56)
[2018-07-23] MEDS ORDERED: Sodium Phosphate Inj 30 MMOL in Sodium Chlor 0.9% Inj 250 ML IV.SIG PRN (11:56)
[2018-07-23] MEDS ORDERED: Potassium Chlor 40 mEq Premix 40 MEQ/100 ML PIGGYBACK IV.SIG PRN ×2 (11:56)
[2018-07-23] MEDS: Sod Chloride 0.9% Inj 1,000 ML IV.CONT SCH ×2 (12:18→19:39)
[2018-07-23] MEDS: Dexamethasone Inj 20 MG/5 ML Vial IV.PUSH SCH ×2 (12:23→20:00)
[2018-07-23] MEDS ORDERED: Bisacodyl 10 MG Supp RECTAL PRN (13:00)
--- NOTE | 2018-07-23 13:38 | P.HPCC ---
History of Present Illness Service: Critical care Primary Care Physician: No Primary Care Physician Chief Complaint: Sore throat History of Present Illness: 42yM presenting to [facility] with chief complaint of sore throat. The patient was admitted to our facility from 07/12-07/14/18 for peritonsillar abscess, discharged home on clindamycin with outpatient ENT follow up. He reported worsening pain and difficulty swallowing yesterday. He was evaluated in the ED and had a CT performed which showed persistent peritonsillar abscess; the ED physician spoke with the on-call ENT specialist, who recommended transferring the patient to the main campus for ICU level of care for airway monitoring, IV steroids/ antibiotics, and possible surgical intervention. - Diagnosis (1) Compromised airway (2) Abscess, peritonsillar Inpatient Certification: I certify that the inpatient services were ordered in accordance with Medicare regulations governing the order. This includes certification that hospital inpatient services are reasonable and necessary and in the case of services not specified as inpatient-only under 42 CFR 419.22(n), that they are appropriately provided as inpatient services in accordance to with the 2-midnight benchmark under 43 CFR 412.3(e) Estimated Total Length of Stay (Days): 3 Plans for Post Hospital Care: Home Review of Systems All other systems reviewed negative except as stated in HPI Constitutional: Reports chills, Denies fever(s) Eyes: Denies blurry vision Ears, Nose, Mouth, and Throat: Reports sore throat Cardiovascular: Denies chest pain Respiratory: Denies cough Gastrointestinal: Denies abdominal pain Genitourinary: Denies painful urination Musculoskeletal: Reports body aches Skin/Breast: Denies rash Neurologic: Denies confusion PMFSH - History History Provided By: Patient - Medical History Medical History: Medical History (Last Reviewed 07/23/18 @ 13:47 by Evelyn Sapp DO) Asthma - Surgical History Surgical History: Surgical History (Last Reviewed 07/23/18 @ 13:47 by Evelyn Sapp DO) Hx of repair of left rotator cuff - Social History I have reviewed the patient's Social History: Yes - Tobacco History Second Hand Smoke Exposure: No Tobacco Use In Past 30 Days: Yes Smoking Status: Current every day smoker Tobacco Type: Cigarettes - Alcohol History How Often Do You Have a Drink Containing Alcohol: Never - Substance Use History Substance History: No History of Abuse - Travel History Recent Travel in the [facility] Within the Last 8 Weeks: No Recent Travel Out of the Country Within the Last 8 Weeks: No - Immunization History Tetanus Immunization: <5 Years Medications and Allergies Active Medications: Active Medications Al Hydroxide/Mg Hydroxide (Milk Of Lucho [place]) 30 ml PO Q12H PRN PRN Reason: Mild Constipation Bisacodyl (Dulcolax Supp) 10 mg RECTAL DAILY PRN PRN Reason: SEVERE CONSITIPATION Chlorhexidine Gluconate (Chlorhexidine 2% Cloth) 3 pack TOPICAL DAILY@0400 JAX Stop: 07/29/18 03:59 Chlorhexidine Gluconate (Chlorhexidine 2% Cloth) 3 pack TOPICAL DAILY@0400 PRN PRN Reason: Extra cloth needed Stop: 07/29/18 03:59 Dexamethasone Sodium Phosphate (Decadron Inj) 10 mg IV.PUSH Q8H JAX Last Admin: 07/23/18 12:23 Dose: 10 mg Famotidine (Pepcid) 20 mg PO BID JAX Famotidine (Pepcid Pf Inj) 20 mg IV.PUSH Q12HR JAX Sodium Chloride (Ns Inj) 1,000 mls @ 0 mls/hr IV.SIG BOLUS JAX Last Infusion: 07/23/18 10:01 Dose: Infused Sodium Chloride (Ns Inj) 1,000 mls @ 0 mls/hr IV.SIG BOLUS JAX Last Infusion: 07/23/18 13:12 Dose: Infused Magnesium Sulfate 4 gm/ Sodium (Chloride) 100 mls @ 50 mls/hr IV.SIG UNSCH PRN PRN Reason: For Magnesium 0.9 - 1.1 mg/dL Magnesium Sulfate 2 gm/ Sodium (Chloride) 100 mls @ 50 mls/hr IV.SIG UNSCH PRN PRN Reason: For Magnesium 1.2 - 1.6 mg/dL Sodium Chloride (Ns Inj) 1,000 mls @ 84 mls/hr IV.CONT .[id number] JAX Last Infusion: 07/23/18 13:17 Dose: 84 mls/hr Potassium Chloride (Kcl 40 Meq Premix Inj) 40 meq in 100 mls @ 25 mls/hr IV.SIG Q2H PRN PRN Reason: For Potassium 2.8 - 3.2 mEq/L Potassium Chloride (Kcl 20 Meq Premix Inj) 20 meq in 100 mls @ 50 mls/hr IV.SIG Q2H PRN PRN Reason: For Potassium 3.3 - 3.5 mEq/L Potassium Chloride (Kcl 20 Meq Premix Inj) 20 meq in 100 mls @ 50 mls/hr IV.SIG Q2H PRN PRN Reason: For Potassium 2.8 - 3.2 mEq/L Potassium Phosphate 30 mmol/ (Sodium Chloride) 260 mls @ 42 mls/hr IV.SIG UNSCH PRN PRN Reason: SEE LABEL COMMENTS Sodium Phosphate 30 mmol/ (Sodium Chloride) 260 mls @ 42 mls/hr IV.SIG UNSCH PRN PRN Reason: For Phosphorus < 2.5 mg/dL Potassium Chloride (Kcl 40 Meq Premix Inj) 40 meq in 100 mls @ 25 mls/hr IV.SIG UNSCH PRN PRN Reason: For Potassium 3.3 - 3.5 mEq/L Lactulose (Lactulose Liq) 30 ml PO DAILY PRN PRN Reason: SEVERE CONSITIPATION Magnesium Oxide (Mag-Ox) 800 mg PO UNSCH PRN PRN Reason: For Magnesium 1.2 - 1.6 mg/dL Potassium Bicarb/Potassium Chloride (K-Lyte Cl Eff) 50 meq PO UNSCH PRN PRN Reason: For Potassium 3.3 - 3.5 mEq/L Potassium Phosphate (K-Phos Original) 2,000 mg PO Q4H PRN PRN Reason: Phosphorus Less Than 2.5 mg/dL Potassium Phosphate (K-Phos Original) 2,000 mg PO UNSCH PRN PRN Reason: SEE LABEL COMMENTS Senna/Docusate Sodium (Christie-Colace) 1 tab PO BID JAX Sennosides (Senokot) 17.2 mg PO Q12H PRN PRN Reason: Moderate Constipation Sodium Chloride (Ns Flush) 2 ml IV.FLUSH BID JAX Sodium Chloride (Ns Flush) 2 ml IV.FLUSH PRN PRN PRN Reason: FLUSH AFTER USING IV ACCESS Allergies Allergy/AdvReac Type Severity Reaction Status Date / Time No Known Allergies Allergy Verified 07/23/18 08:19 Results - Labs CBC & Chem 7: 07/23/18 08:54 07/23/18 08:54 Labs: Short CBC 07/23/18 Range/Units 08:54 WBC 17.5 H (4.0-11.0) th/mm3 Hgb 12.9 L (13.0-17.0) gm/dL Hct 39.0 (39.0-51.0) % Plt Count 418 (150-450) th/mm3 BMP 07/23/18 08:54 Sodium 138 Potassium 3.8 Chloride 104 Carbon Dioxide 26.5 BUN 12 Creatinine 0.80 Calcium 7.8 L Liver Function 07/23/18 Range/Units 08:54 Total Bilirubin 0.3 (0.2-1.0) mg/dL AST 16 (15-37) U/L ALT 15 (12-78) U/L Alkaline Phosphatase 87 (45-117) U/L Albumin 3.1 L (3.4-5.0) g/dL - Imaging Impressions Soft Tissue Neck CT 07/23/18 08:45 CONCLUSION: Persistent left peritonsillar abscess Exam Vital signs: Vital Signs 07/23/18 08:16 07/23/18 08:38 07/23/18 08:57 Temperature 100 F H Pulse Rate 88 90 87 Respiratory Rate 22 20 Blood Pressure 149/85 H Pulse Oximetry 98 99 07/23/18 11:44 07/23/18 11:45 Temperature Pulse Rate 76 Respiratory Rate Blood Pressure 119/72 Pulse Oximetry 95 Intake & Output 07/22/18 07/23/18 07/23/18 18:59 06:59 18:59 Intake Total 2130 / 2130 Output Total 1400 / 1400 Balance 730 / 730 Weight 70.3 kg Intake: IV 2130 / 2130 NS Inj 1,000 ML @ 84 mls/hr IV. 80 / 80 CONT .[id number] JAX Rx#: [id number] Zosyn 3.375 GM Premix 50 ML @ 50 / 50 100 mls/hr IV.SIG ONCE ONE Rx#: [id number] NS Inj 1,000 ML @ Wide Open IV. 1999 / 1999 SIG BOLUS JAX Rx#:[id number] Output: Urine 1400 / 1400 Other: # Voids 1 Narrative: GEN: Appears uncomfortable but not distressed HEENT: NCAT, no trismus or drooling, Mallampati III, significant swelling to left posterior oropharynx and uvula is deviated to the right, no stridor NECK: Trachea midline, (+) left anterior and submandibular cervical adenopathy CARDIO: Regular rate and rhythm PULM: Clear to auscultation bilaterally ABD/GI: Soft and non-tender EXT/MSK: No peripheral edema SKIN: No rashes NEURO: A&Ox3, conversational, no focal neuro deficits PSYCH: Appropriate affect Austini VTE Risk Assessment Capjanellei VTE Risk Assessment: No/Low Risk (score <= 1) Austini Risk Assessment Model: Point Value = 1 Point Value = 2 Point Value = 3 Point Value = 5 Age 41-60 Minor surgery BMI > 25 kg/m2 Swollen legs Varicose veins or History of unexplained or recurrent spontaneous Oral contraceptives or hormone replacement Sepsis (< 1 month) Serious lung disease, including pneumonia (< 1 month) Abnormal pulmonary function Acute myocardial infarction Congestive heart failure (< 1 month) History of inflammatory bowel disease Medical patient at bed rest Age 61-74 Arthroscopic surgery Major open surgery (> 45 min) Laparoscopic surgery (> 45 min) Malignancy Confined to bed (> 72 hours) Immobilizing plaster cast Central venous access Age >= 75 History of VTE Family history of VTE Factor V Leiden Prothrombin [id number] Lupus anticoagulant Anticardiolipin antibodies Elevated serum homocysteine Heparin-induced thrombocytopenia Other congenital or acquired thrombophilia Stroke (< 1 month) Elective arthroplasty Hip, pelvis, or leg fracture Acute spinal cord injury (< 1 month) Prophylaxis Regimen: Total Risk Factor Score Risk Level Prophylaxis Regimen 0-1 Low Early ambulation 2 Moderate Order ONE of the following: *Sequential Compression Device (SCD) *Heparin 5000 units SQ BID 3-4 Higher Order ONE of the following medications: *Heparin 5000 units SQ TID *Enoxaparin/Lovenox 40 mg SQ daily (WT < 150 kg, CrCl > 30 mL/min) *Enoxaparin/Lovenox 30 mg SQ daily (WT < 150 kg, CrCl > 10-29 mL/min) *Enoxaparin/Lovenox 30 mg SQ BID (WT < 150 kg, CrCl > 30 mL/min) AND/OR *Sequential Compression Device (SCD) 5 or more Highest Order ONE of the following medications: *Heparin 5000 units SQ TID (Preferred with Epidurals) *Enoxaparin/Lovenox 40 mg SQ daily (WT < 150 kg, CrCl > 30 mL/min) *Enoxaparin/Lovenox 30 mg SQ daily (WT < 150 kg, CrCl > 10-29 mL/min) *Enoxaparin/Lovenox 30 mg SQ BID (WT < 150 kg, CrCl > 30 mL/min) AND *Sequential Compression Device (SCD) Assessment and Plan - Problem List (1) Compromised airway Code(s): J98.8 - Other specified respiratory disorders Status: Acute (2) Abscess, peritonsillar Code(s): J36 - Peritonsillar abscess Status: Acute - Assessment and Plan Plan: 42yM admitted for persistent left peritonsillar abscess Close airway monitoring in ICU Decadron q8h Antibiotics- received a dose of Zosyn in the ED, can switch to IV clindamycin Oral care ENT consultation NPO for now, if no surgical intervention planned can start mechanical soft diet SCDs, ambulate, low risk for DVT so no need for lovenox/ SQH Counseling/ Coordination of Care: Total critical care time spent is 32 minutes. This includes examining the patient, gathering history from someone other than the patient (i.e. chart review), discussing the patient's care with other providers, re-evaluation at frequent intervals for airway monitoring, and documentation. Amount of time is separate from teaching, counseling the patient and/or family, and exclusive of procedures. Code Status: Full
[2018-07-23] MEDS: Clindamycin 900 mg/NS Premix 900 MG/50 ML PIGGYBACK IV.SIG SCH ×2 (15:38→21:39)
[2018-07-23] MEDS: Famotidine PF Inj 20 MG/2 ML Vial IV.PUSH SCH (21:00)
[2018-07-23] MEDS: Famotidine 20 MG Tablet PO SCH (21:38)
[2018-07-23] MEDS: Senna/Docusate Sodium 8.6/50 MG Tablet PO SCH (21:39)
[2018-07-24] MEDS: Sod Chloride 0.9% Inj 1,000 ML IV.CONT SCH (01:04)
[2018-07-24] MEDS ORDERED: Chlorhexidine Gluconate 2% 1 Pack (2 Cloths) TOPICAL SCH (04:00)
[2018-07-24] MEDS ORDERED: Chlorhexidine Gluconate 2% 1 Pack (2 Cloths) TOPICAL PRN (04:00)
[2018-07-24 04:14] LABS: Baso % (Auto) 0.2 % (0.0-2.0); Hematocrit 36.2 % (39.0-51.0); Lymph % (Auto) 8.2 % (9.0-44.0); Mean Corpuscular HGB Conc 33.2 % (32.0-36.0); Mean Corpuscular Hemoglobin 27.7 pg (27.0-34.0); Mean Corpuscular Volume 83.5 fL (80.0-100.0); Mean Platelet Volume 8.3 fL (7.0-11.0); Mono # (Auto) 0.3 th/mm3 (0.0-0.9); Mono % (Auto) 2.1 % (0.0-8.0); Neut # (Auto) 11.4 th/mm3 (1.8-7.7); Neut % (Auto) 89.5 % (16.0-70.0); Platelet Count 382 th/mm3 (150-450); Red Blood Count 4.33 mil/mm3 (4.50-5.90); Red Cell Distribution Width 14.1 % (11.6-17.2); White Blood Count 12.7 th/mm3 (4.0-11.0)
[2018-07-24 04:16] LABS: Prothrombin Time 10.4 sec (9.8-11.6)
[2018-07-24 04:31] LABS: Anion Gap 6 meq/L (5-15); Blood Urea Nitrogen 10 mg/dL (7-18); Calcium 7.8 mg/dL (8.5-10.1); Carbon Dioxide 25.9 meq/L (21.0-32.0); Chloride 111 meq/L (98-107); Glomerular Filtration Rate Greater Than 89 mL/min (>89); Glucose,Random 119 mg/dL (74-106); Magnesium 2.2 mg/dL (1.5-2.5); Phosphorus 2.9 mg/dL (2.5-4.9); Sodium 143 meq/L (136-145)
[2018-07-24] MEDS: Dexamethasone Inj 20 MG/5 ML Vial IV.PUSH SCH ×3 (04:35→19:59)
[2018-07-24] MEDS: Clindamycin 900 mg/NS Premix 900 MG/50 ML PIGGYBACK IV.SIG SCH ×2 (06:47→15:04)
[2018-07-24] MEDS ORDERED: Lidocaine 1%/Epinephrine 1:100,000 Inj 30 ML Vial ONE (10:05)
--- NOTE | 2018-07-24 10:11 | P.PNCC ---
Subjective Subjective Remarks/Hospital Course: 42yM presenting to [place] [facility] with chief complaint of sore throat. The patient was admitted to our facility from 07/12-07/14/18 for peritonsillar abscess, discharged home on clindamycin with outpatient ENT follow up. He reported worsening pain and difficulty swallowing yesterday. He was evaluated in the ED and had a CT performed which showed persistent peritonsillar abscess; the ED physician spoke with the on-call ENT specialist, who recommended transferring the patient to the main campus for ICU level of care for airway monitoring, IV steroids/ antibiotics, and possible surgical intervention. 07/24: No issues overnight, reports improvement in pharyngitis but continues odynophagia. His only complaint is feeling hungry. Objective Vital Signs / I&O: Vital Signs 07/23/18 11:44 07/23/18 11:45 07/23/18 15:00 Temperature 98.0 F Pulse Rate 76 66 Respiratory Rate 14 Blood Pressure 119/72 129/79 Pulse Oximetry 95 99 07/23/18 16:00 07/23/18 17:00 07/23/18 18:00 Temperature 98.6 F 99.0 F 98.4 F Pulse Rate 78 80 74 Respiratory Rate 15 21 18 Blood Pressure 130/90 122/89 129/90 Pulse Oximetry 96 95 97 07/23/18 19:00 07/23/18 20:00 07/24/18 00:00 Temperature 98.2 F 98.5 F 98.4 F Pulse Rate 80 74 59 L Respiratory Rate 19 26 H 11 L Blood Pressure 131/78 111/64 97/56 L Pulse Oximetry 99 94 L 92 L 07/24/18 04:00 Temperature 98.4 F Pulse Rate 67 Respiratory Rate 13 Blood Pressure 119/74 Pulse Oximetry 93 L Intake & Output 07/23/18 07/24/18 07/24/18 18:59 06:59 18:59 Intake Total 2180 / 2180 1050 / 1050 Output Total 2200 / 2200 990 / 990 Balance -20 / -20 60 / 60 Weight 70.3 kg 71.9 kg Intake: IV 2180 / 2180 1050 / 1050 NS Inj 1,000 ML @ 84 mls/hr IV. 80 / 80 1000 / 1000 CONT .[id number] [facility] Rx#: [id number] Cleocin 900 mg/NS Premix 900 mg 50 / 50 50 / 50 In 50 ml @ 100 mls/hr IV.SIG Q8H JAX Rx#:[id number] Zosyn 3.375 GM Premix 50 ML @ 50 / 50 100 mls/hr IV.SIG ONCE ONE Rx#: [id number] NS Inj 1,000 ML @ Wide Open IV. 1999 SIG BOLUS JAX Rx#:[id number] Output: Urine 2200 / 2200 990 / 990 Other: # Voids 2 Result Diagrams: 07/24/18 02:46 07/24/18 02:46 Objective Remarks: GEN: No acute distress HEENT: No trismus or drooling, Mallampati IV, improved mouth opening as compared to yesterday, moderate swelling to left posterior oropharynx and uvula is deviated to the right, no stridor NECK: Trachea midline, (+) left anterior and submandibular cervical adenopathy CARDIO: Regular rate and rhythm PULM: Clear to auscultation bilaterally ABD/GI: Soft and non-tender EXT/MSK: No peripheral edema SKIN: No rashes NEURO: A&Ox3, conversational, no focal neuro deficits PSYCH: Appropriate affect Assessment and Plan - Problem List (1) Compromised airway Code(s): J98.8 - Other specified respiratory disorders Status: Acute (2) Abscess, peritonsillar Code(s): J36 - Peritonsillar abscess Status: Acute - Assessment and Plan Plan: 42yM admitted for persistent left peritonsillar abscess Close airway monitoring in ICU Decadron q8h Antibiotics- continue IV clindamycin Oral care I spoke with Dr. Dominguez of ENT, who is coming in to perform bedside drainage of abscess this morning NPO for now, can likely start mechanical soft diet this afternoon SCDs, ambulate, low risk for DVT so no need for lovenox/ SQH Counseling/ Coordination of Care: Level 2 follow up visit Code Status: Full
[2018-07-24] MEDS: Famotidine 20 MG Tablet PO SCH ×2 (10:15→20:00)
[2018-07-24] MEDS: Famotidine PF Inj 20 MG/2 ML Vial IV.PUSH SCH ×2 (10:16→20:00)
[2018-07-24] MEDS: Senna/Docusate Sodium 8.6/50 MG Tablet PO SCH ×2 (10:16→20:00)
[2018-07-24] MEDS ORDERED: Dexamethasone Inj 20 MG/5 ML Vial IV.PUSH SCH (12:00)
[2018-07-24 14:31] VITALS: O2SAT 94
[2018-07-24 15:01] VITALS: BP 137/90; PULSE 78; RESP 20; TEMP 97.9
--- NOTE | 2018-07-26 09:32 | MB ---
cc: Daniel Dominguez MD DATE: 07/23/2018 CHIEF COMPLAINT: Left peritonsillar infection. HISTORY: The patient is a pleasant 42-year-old male with a recent history of a peritonsillar abscess and it was improved with antibiotics and steroids. After his overnight admission, he had rapid improvement of his symptoms, tolerating oral secretions, and only mild pain. Flexible fiberoptic laryngoscopy revealed widely patent airway and mild swelling of the left peritonsillar tissue. ASSESSMENT: Peritonsillar abscess, resolving. PLAN: Recommend the patient have diet advanced and would likely be able to be discharged shortly there afterwards as doing quite well. Recommend the patient be discharged with 2 weeks of antibiotics and a Medrol Dosepak. Daniel Dominguez MD [facility]/rs , 06:54 AM , 06:58 AM
== END 2018-07-24 20:30 | disposition left against medical advice (07) ==
LOC: PHED 08:08 → PHEDA 11:55 → N03 14:01
PROVIDERS: ADMIT Surgery Surgical Critical Care; ATTEND Surgery Surgical Critical Care